=== PATIENT | male | born 1935 | race Caucasian/White ===

== ENCOUNTER → 2016-10-09 | Outpatient (CLI) | payer MEDICARE | END | disposition home or self-care (01) | LOC: PCVCCLINIC 14:48 | PROVIDERS: ATTEND Internal Medicine Cardiovascular Disease | DX: I25.10 Atherosclerotic heart disease of native coronary artery without angina pectoris (principal); I47.2 Ventricular tachycardia; I10 Essential (primary) hypertension; E78.00 Pure hypercholesterolemia, unspecified; Z79.82 Long term (current) use of aspirin; Z88.6 Allergy status to analgesic agent | CPT/HCPCS: 80061; 93005; G0463 ==

== ENCOUNTER → 2016-10-15 | Outpatient (CLI) | payer MEDICARE ==
--- NOTE | 2016-10-15 15:11 | PCVCIMAG ---
APPROVED REPORT Study performed: 10/15/2016 13:59:30 EXAM: Comprehensive 2D, Doppler, and color-flow Echocardiogram Patient Location: Echo lab Status: routine BSA: 2.23 HR: 70 bpmBP: 144/82 mmHg Rhythm: NSR w/ PVCs Other Information Study Quality: Adequate Risk Factors: Cardiac Risk Factors: HTN Indications Palpitations PVCs 2D Dimensions LVEF(%): 59.16 (>50%) IVSd: 10.02 (7-11mm) LVDd: 55.60 mm PWd: 8.40 (7-11mm) LVDs: 37.94 (25-40mm) Left Atrium: 42.36 (27-40mm) Aortic Root: 32.63 mm LV Single Plane 4CH: 46.79 % LV Single Plane 2CH: 51.20 %Delacruz's LVEF: 48.99 % Biplane EF: 49.6 % Volumes Left Atrial Volume (Systole) Single Plane 4CH: 81.30 mLSingle Plane 2CH: 78.95 mL LA ESV Index: 37.00 mL/m2 Aortic Valve AoV Peak Avni.: 1.24 m/s AO Peak Gr.: 6.18 mmHgLVOT Max P.63 mmHg LVOT Max V: 0.78 m/s Mitral Valve E/A Ratio: 1.5 MV Decel. Time: 238.79 ms MV E Max Avni.: 0.74 m/s MV A Avni.: 0.49 m/s Pulmonary Valve PV Peak Avni.: 1.04 m/sPV Peak Gr.: 4.35 mmHg Pulmonary Vein P Vein S: 0.33 m/sP Vein A: 0.25 m/s P Vein D: 0.36 m/sP Vein A Dur.: 133.8 msec P Vein S/D Ratio: 0.92 Tricuspid Valve TR Peak Avni.: 2.46 m/s TR Peak Gr.: 24.16 mmHg Left Ventricle The left ventricle is normal size. There is normal LV segmental wall motion. There is normal left ventricular wall thickness. Left ventricular systolic function is within lower limits of normal. LVEF is 50%. Grade I - abnormal relaxation pattern. Right Ventricle The right ventricle is normal size. The right ventricular systolic function is normal. Atria Left atrium is mildly dilated. The right atrium size is normal. Aortic Valve The aortic valve is normal in structure. No aortic regurgitation is present. There is no aortic valvular stenosis. Mitral Valve The mitral valve is normal in structure. Mild mitral regurgitation. No evidence of mitral valve stenosis. Tricuspid Valve The tricuspid valve is normal in structure. Mild tricuspid regurgitation with PAP of 31 mmHg. Pulmonic Valve The pulmonary valve is normal in structure. There is no pulmonic valvular regurgitation. Great Vessels The aortic root is normal in size. IVC is normal in size and collapses with >50% inspiration Pericardium There is no pericardial effusion. <Conclusion> Left ventricular systolic function is within lower limits of normal. LVEF is 50%. Grade I - abnormal relaxation pattern. The right ventricle is normal size. Left atrium is mildly dilated. The aortic valve is normal in structure. Mild mitral regurgitation. There is no pericardial effusion. Mild tricuspid regurgitation with PAP of 31 mmHg.
== END | disposition home or self-care (01) ==
LOC: PCVCIMAG 13:39
PROVIDERS: ATTEND Internal Medicine Cardiovascular Disease
DX: I08.1 Rheumatic disorders of both mitral and tricuspid valves (principal); I49.3 Ventricular premature depolarization; I10 Essential (primary) hypertension; I25.10 Atherosclerotic heart disease of native coronary artery without angina pectoris; E78.5 Hyperlipidemia, unspecified
CPT/HCPCS: 93306

== ENCOUNTER → 2017-03-17 | Outpatient (CLI) | payer MEDICARE | END | disposition home or self-care (01) | LOC: PCVCCLINIC 13:50 | DX: I25.10 Atherosclerotic heart disease of native coronary artery without angina pectoris (principal); I10 Essential (primary) hypertension; I49.3 Ventricular premature depolarization; I47.2 Ventricular tachycardia; E78.00 Pure hypercholesterolemia, unspecified; Z79.899 Other long term (current) drug therapy; Z79.82 Long term (current) use of aspirin | CPT/HCPCS: 80061; 93005; G0463 ==

== ENCOUNTER → 2017-11-11 | Outpatient (CLI) | payer MEDICARE | END | disposition home or self-care (01) | LOC: PCVCCLINIC 14:41 | PROVIDERS: ATTEND Internal Medicine Cardiovascular Disease | DX: I25.10 Atherosclerotic heart disease of native coronary artery without angina pectoris (principal); E78.00 Pure hypercholesterolemia, unspecified; I47.2 Ventricular tachycardia; I49.3 Ventricular premature depolarization; C61 Malignant neoplasm of prostate; R94.31 Abnormal electrocardiogram [ECG] [EKG]; F10.10 Alcohol abuse, uncomplicated; Z88.8 Allergy status to other drugs, medicaments and biological substances; Z87.891 Personal history of nicotine dependence; Z79.82 Long term (current) use of aspirin; Z79.899 Other long term (current) drug therapy | CPT/HCPCS: 80061; 93005; G0463 ==

== ENCOUNTER → 2018-01-01 | Outpatient (CLI) | payer MEDICARE ==
--- NOTE | 2018-01-01 16:23 | PCVCIMAG ---
APPROVED REPORT Study performed: 01/01/2018 15:31:14 EXAM: Comprehensive 2D, Doppler, and color-flow Echocardiogram Patient Location: Echo lab Status: routine BSA: 2.26 HR: 82 bpmBP: 144/68 mmHg Rhythm: PVC's Other Information Study Quality: Adequate Risk Factors: Cardiac Risk Factors: Hyperlipidemia Indications CAD Leg Swelling 2D Dimensions IVSd: 11.97 (7-11mm)LVOT Diam: 21.00 (18-24mm) LVDd: 51.46 mm PWd: 12.59 (7-11mm)Ascending Ao: 31.88 (22-36mm) LVDs: 36.72 (25-40mm) Left Atrium: 38.65 (27-40mm) Aortic Root: 28.35 mm LV Single Plane 4CH: 46.24 % LV Single Plane 2CH: 46.02 % Biplane EF: 47.6 % Volumes Left Atrial Volume (Systole) Single Plane 4CH: 65.14 mLSingle Plane 2CH: 77.69 mL LA ESV Index: 35.00 mL/m2 Aortic Valve AoV Peak Avni.: 1.21 m/s AO Peak Gr.: 5.87 mmHgLVOT Max P.96 mmHg LVOT Max V: 0.86 m/s BOBBY Vmax: 2.38 cm2 Pulmonary Valve PV Peak Avni.: 1.08 m/sPV Peak Gr.: 4.64 mmHg Pulmonary Vein P Vein S: 0.39 m/sP Vein A: 0.23 m/s P Vein D: 0.62 m/sP Vein A Dur.: 86.5 msec P Vein S/D Ratio: 0.63 Tricuspid Valve TR Peak Avni.: 2.30 m/sRAP Estimate: 7.00 mmHg TR Peak Gr.: 21.16 mmHg PA Pressure: 28.00 mmHg Left Ventricle The left ventricle is normal size. There is normal LV segmental wall motion. Mild concentric left ventricular hypertrophy. Left ventricular systolic function is borderline. LVEF is 50%. This study is not technically sufficient to allow evaluation of the LV diastolic function. Right Ventricle The right ventricle is normal size. The right ventricular systolic function is normal. Atria The left atrium size is normal. The right atrium size is normal. Aortic Valve The aortic valve is normal in structure. No aortic regurgitation is present. There is no aortic valvular stenosis. Mitral Valve The mitral valve is normal in structure. Mild mitral regurgitation. No evidence of mitral valve stenosis. Tricuspid Valve The tricuspid valve is normal in structure. Mild tricuspid regurgitation. Pulmonary artery pressure is 28 mmHg. Pulmonic Valve The pulmonary valve is normal in structure. Mild pulmonic regurgitation. Great Vessels The aortic root is normal in size. IVC is normal in size and collapses >50% with inspiration. Pericardium There is no pericardial effusion. <Conclusion> The left ventricle is normal size. Mild concentric left ventricular hypertrophy. LVEF is 50%. This study is not technically sufficient to allow evaluation of the LV diastolic function. The right ventricle is normal size. The left atrium size is normal. The aortic valve is normal in structure. Mild mitral regurgitation. Mild tricuspid regurgitation. Pulmonary artery pressure is 28 mmHg. The aortic root is normal in size. There is no pericardial effusion.
== END | disposition home or self-care (01) ==
LOC: PCVCIMAG 13:32
PROVIDERS: ATTEND Internal Medicine Cardiovascular Disease
DX: I25.10 Atherosclerotic heart disease of native coronary artery without angina pectoris (principal); I49.3 Ventricular premature depolarization; I47.2 Ventricular tachycardia; I08.1 Rheumatic disorders of both mitral and tricuspid valves; E78.00 Pure hypercholesterolemia, unspecified; I87.2 Venous insufficiency (chronic) (peripheral); C61 Malignant neoplasm of prostate; I10 Essential (primary) hypertension; Z79.82 Long term (current) use of aspirin; Z79.899 Other long term (current) drug therapy; Z87.891 Personal history of nicotine dependence
CPT/HCPCS: 93005; 93306; G0463

== ENCOUNTER → 2018-03-27 | Outpatient (CLI) | payer MEDICARE | END | disposition home or self-care (01) | LOC: PCVCCLINIC 14:49 | PROVIDERS: ATTEND Internal Medicine Cardiovascular Disease | DX: I25.10 Atherosclerotic heart disease of native coronary artery without angina pectoris (principal); E78.00 Pure hypercholesterolemia, unspecified; I10 Essential (primary) hypertension; I47.2 Ventricular tachycardia; R60.9 Edema, unspecified; C61 Malignant neoplasm of prostate; Z87.891 Personal history of nicotine dependence; Z79.82 Long term (current) use of aspirin | CPT/HCPCS: 36415; 80061; 93005; G0463 ==

== ENCOUNTER → 2018-06-03 | Outpatient (CLI) | payer MEDICARE | END | disposition home or self-care (01) | LOC: PCVCCLINIC 10:30 | PROVIDERS: ATTEND Internal Medicine Cardiovascular Disease | DX: I25.10 Atherosclerotic heart disease of native coronary artery without angina pectoris (principal); E78.00 Pure hypercholesterolemia, unspecified; I10 Essential (primary) hypertension; I47.2 Ventricular tachycardia; M25.551 Pain in right hip; M25.552 Pain in left hip; Z88.8 Allergy status to other drugs, medicaments and biological substances; Z87.891 Personal history of nicotine dependence; Z79.82 Long term (current) use of aspirin | CPT/HCPCS: 36415; 80061; 93005; G0463 ==

== ENCOUNTER → 2018-06-08 | Outpatient (CLI) | payer MEDICARE ==
--- NOTE | 2018-06-05 23:22 | PCVCIMAG ---
EXAM: AORTOILIAC DUPLEX INDICATION: Peripheral arterial disease FINDINGS: AORTA: Suprarenal aorta measures maximum diameter of 2.9 cm. There is not a fusiform infrarenal aortic aneurysm. The infrarenal aorta measures maximum diameter of 2.6 cm. No aortic stenosis. RIGHT COMMON ILIAC ARTERY: Maximum diameter is 1.5 cm. No significant stenosis. RIGHT EXTERNAL ILIAC ARTERY: No significant stenosis. LEFT COMMON ILIAC ARTERY: Maximum diameter is 1.6 cm. No significant stenosis. LEFT EXTERNAL ILIAC ARTERY: No significant stenosis. IMPRESSION: No abdominal aortic aneurysm. No aortoiliac stenosis seen. LOC:OFFICE
[~2018-06-08] MED LIST: REGADENOSON 0.4 MG/5 ML DISP.SYRIN. IV ONE
--- NOTE | 2018-06-08 17:21 | PCVCIMAG ---
APPROVED REPORT Imaging Protocol: Rest Tc-99m/Stress Tc-99m 1 day Study performed: 06/08/2018 10:18:23 Indication: Pre-Operative CV evaluation, Dyspnea, Fatigue Patient Location: Out-Patient Stress Nurse: Candy Wiggins RN, Christie Hubbard RN [place] Tech:SIERRA Chamberlain Ht: 5 ft 10 in Wt: 136 lbs BSA: 1.77 m2 HR: 65 bpm BP: 157/65 mmHg BMI: 19.5 Medical History Medical History: HTN, Hyperlipidemia, Former Smoker Medications: ASA, Flecanide, Lisinopril, Crestor, Demadex Allergies: iBUPROFEN Cardiac Risk Factors: Age Previous Cardiac Procedures: 2010 CATH- Mild disease Pretest Chest Pain Characteristics: No chest pain Exercise History: Sedentary Resting Data Rest SPECT myocardial perfusion imaging was performed in supine position 45 minutes following the intravenous injection of 9.7 mCi of Tc-99m Sestamibi. Time of rest injection: 1010 Date: 06/08/2018 Administration Route: IV Administration Site: Right AC Pharmacologic Stress Pharmacologic stress test was performed by injecting Regadenoson 0.4 mg IV push over 10-15 seconds immediately followed by the intravenous injection of 33.2 mCi of Tc-99m Sestamibi. Time of stress injection: 1145 Date: 06/08/2018 Administration Route: IV Administration Site: Right Arm Gated Stress SPECT was performed 45 minutes after stress injection. The images were gated to evaluate regional wall motion and calculate left ventricular ejection fraction. Comments Prior Nuclear Stress Test 2017: Nonischemic Stress Test Details Stress Test: Pharmacologic stress testing performed using 0.4 mg of regadenoson per 5 mL given IV over 10 seconds. Reason for pharmacologic stress test: Hip pain. HRMax Heart Rate (APMHR): 140 bpm Resting HR: 65 bpmTarget HR (85% APMHR): 119 bpm Max HR Achieved: 95 bpm % of APMHR: 67 Recovery HR: 73 bpm BP Resting BP: 157/65 mmHg Max BP: 153/75 mmHg Recovery BP: 124/61 mmHg ECG Resting ECG: Sinus Rhythm, nonspecific ST-T abnormalities, 1st degree AV block Stress ECG: Sinus Rhythm, nonspecific ST-T abnormalities, 1st degree AV block Arrhythmia: PVC's Recovery ECG: Sinus Rhythm, nonspecific ST-T abnormalities, 1st degree AV block Clinical Reason for Termination: Completed protocol Stress Symptoms: Dyspnea, Lightheaded Exercise duration: 0 min 55 sec Symptoms resolved with caffeine. Stress ECG Conclusion ECG: Non-ischemic Study Quality Study: Good Study Data Post stress, the left ventricular ejection was 66%.. SSS: 1 SRS: 2 SDS: 0 TID = 1.00. Perfusion No evidence of stress induced ischemia or prior myocardial infarction. Wall Motion Normal left ventricular size and function with no regional wall motion abnormalities. Nuclear Conclusion No evidence of stress induced ischemia or prior myocardial infarction. Normal left ventricular size and function with no regional wall motion abnormalities. Post stress, the left ventricular ejection was 66%. No prior study available for comparison. Interpreted by: Hank Loza MD Electronically Approved: 06/08/2018 16:42:41 <Conclusion> ECG: Non-ischemic
== END | disposition home or self-care (01) ==
LOC: PCVCIMAG 08:00
PROVIDERS: ATTEND Internal Medicine Cardiovascular Disease
DX: Z01.810 Encounter for preprocedural cardiovascular examination (principal); I73.9 Peripheral vascular disease, unspecified; I25.10 Atherosclerotic heart disease of native coronary artery without angina pectoris; I47.2 Ventricular tachycardia; I49.3 Ventricular premature depolarization; R53.83 Other fatigue; E78.00 Pure hypercholesterolemia, unspecified
CPT/HCPCS: 78452; 93017; 93978; A9500; J2785